=== PATIENT | male | born 1975 | race Caucasian/White ===

== ENCOUNTER 2023-03-21 10:03 | Outpatient (AMB) | payer OTHER, SELFPAY ==
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
[2023-03-21 10:06] VITALS: BP 104/86; PULSE 105; O2SAT 95; BMI 33.5
== END 2023-03-21 11:49 | disposition home or self-care (01) ==
PROVIDERS: Visit Provider Nurse Practitioner Family
DX: G43.109 Migraine with aura, not intractable, without status migrainosus (principal); G43.709 Chronic migraine without aura, not intractable, without status migrainosus; G47.9 Sleep disorder, unspecified
CPT/HCPCS: 99204

== ENCOUNTER → 2023-03-21 10:03 | Outpatient (BNVA) | payer OTHER, SELFPAY | PROVIDERS: Visit Provider Nurse Practitioner Family | DX: G43.709 Chronic migraine without aura, not intractable, without status migrainosus (principal); G47.9 Sleep disorder, unspecified | CPT/HCPCS: 99202 ==

== ENCOUNTER 2023-06-28 15:04 | Outpatient (AMB) | payer OTHER, SELFPAY ==
--- NOTE | 2023-06-28 15:09 | A.OFFVIS_ITS ---
Intake Vital Signs 06/28/23 15:10 Height 5 ft 11 in Weight 243 lb 4 oz BMI 33.9 Pulse 98 Pulse Source Pulse Oximeter Pulse Oximetry (%) 96 Oxygen Delivery Method Room Air Intake Visit Reasons: 3m follow up migraine-LVM Intake Note: Patient presents for 3 month follow up. Patient states Im not getting them in the morning like before.I have a migraine right now. I took the ubrelvy 45 mins ago. Allergies cat dander Allergy (Mild, Verified 06/28/23 15:14) Runny Nose amoxicillin Allergy (Unknown, Verified 06/28/23 15:14) Nausea and Vomiting clindamycin Allergy (Unknown, Verified 06/28/23 15:14) Diarrhea Medication List - Last Reconciled 06/28/23 by ABDELRAHMAN Taylor albuterol sulfate 2.5 mg inhalation Q6H albuterol sulfate 90 mcg/actuation (Ventolin HFA) 2 puffs inhalation Q6H PRN ammonium lactate 12% 1 appl topical DAILY atorvastatin 20 mg PO DAILY betamethasone valerate 0.1% 1 appl topical DAILY cetirizine 10 mg PO DAILY PRN clobetasol 0.05% 1 appl topical BEDTIME cyclobenzaprine 5 mg PO TID PRN fluticasone furoate-vilanterol 200-25 mcg/dose 1 inh inhalation DAILY galcanezumab-gnlm (Emgality Pen) 120 mg subcut ONCE 30 days hydrocortisone 2.5% 1 appl topical BID PRN ibuprofen 600 mg PO Q8H PRN mometasone 0.1% 1 appl topical DAILY montelukast 10 mg PO BEDTIME nicotine (Nicotrol) 1 inh inhalation Q2-4H PRN tacrolimus 0.03% (Protopic) 1 appl topical BID topiramate 25 - 50 mg (1 - 2 x 25 mg) PO BEDTIME 30 days triamcinolone acetonide 1 spray intranasal DAILY ubrogepant (Ubrelvy) 50 - 100 mg (0.5 - 1 x 100 mg) PO ONCE PRN 30 days umeclidinium 62.5 mcg/actuation (Incruse Ellipta) 1 inh inhalation BEDTIME HPI HPI Comments History of Present Illness Details 47-yr-old male presents for f/u visit, a ccompanied by his . Pt denies any significant interval medical changes. Pt reports that he has been having less headaches during the morning. He is having 3-3.5 times per week. He has to keep the lights down low and sounds down low. Tolerating Topiramate 25mg well. Ubrelvy has been helpful- can run out before the end of the month. He has not tried Emgality- he has a severe needle phobia. [facility] Medical History (Updated 07/05/23 @ 11:01 by ABDELRAHMAN Taylor) Umbilical hernia HTN (hypertension) HLD (hyperlipidemia) Anxiety Asthma-COPD overlap syndrome AMI on CPAP Family History Father Seizures Dementia Brain cancer Alzheimer disease CHF (congestive heart failure) Brother Diabetes Stomach cancer Maternal Grandmother Cancer Maternal Grandfather Cancer Paternal Grandmother Cancer Paternal Grandfather Cancer Social History Alcohol intake: never Patient Tobacco Use Status: Current everyday Tobacco user Review of Systems Const All systems reviewed & are unremarkable except as noted in HPI and below Physical Exam Vital Signs: Last Vital Signs Pulse 98 06/28/23 15:10 Pulse Ox 96 06/28/23 15:10 Oxygen Delivery Method Room Air 06/28/23 15:10 BMI result Body Mass Index 33.9 Const General: cooperative and no acute distress Orientation/consciousness: patient oriented x3 HEENT Head: Yes normocephalic Resp Effort & Inspection: normal respiratory effort and able to speak in complete sentences Neuro Other: Photophobic General: patient oriented x3, gait normal and CN's II-XI intact bilaterally Cognition (Neuro): normal cognition Motor exam (neuro): 5/5 motor strength present throughout Psych Appearance: grossly normal Mental Status: mental status grossly normal Speech and movement: Normal speech and movement present Affect: normal affect Attitude: cooperative Thought process: Normal thought process present Thought content: Normal thought content present Insight: Good insight present (Psych) Judgement: Good judgement present (Psych) Assessment & Plan Assessment & Plan (1) Chronic migraine without aura: Comment: likely posttraumatic etiology Code(s): G43.709 - Chronic migraine without aura, not intractable, without status migrainosus (2) Sleep difficulties: Code(s): G47.9 - Sleep disorder, unspecified (3) Photophobia: Code(s): H53.149 - Visual discomfort, unspecified (4) Migraine with aura: Code(s): G43.109 - Migraine with aura, not intractable, without status migrainosus Plan For tremor, ? olfactory/sense of something passing by, ? hypnogenic hallucinations/vivid dreams: ? psych process, ? early or posttraumatic movement d/o process, ? d/t h/o thorazine use, less likely ? of epileptic etiology. Will again request any head/neck imaging. Could consider DaTscan in f/u ? For posterior neck lump- Will review neck imaging. ? For overall headache management: Track headaches, especially after any treatment regimen changes. Migraine [employer] is one of many headache tracking apps. Light sensitivity tips: Patient may try blue light filtering glasses, green glasses, green light therapy.. Avoid wearing sunglasses inside. ? For acute headache treatment: Continue Ubrogepant (Ubrelvy) 100mg tab, 1/2 - 1 tab (50-100mg) at onset of hea dache, may repeat in 2 hours. Max of 2 tabs (200mg) per 24 hours. May adjunct with OTC Tylenol 650mg q 4 hours, Ibuprofen 600mg q 6 hours, or Naproxen 440mg q 12 hrs prn. Previous acute migraine medication trials: Advil. Ibuprofen. Acute migraine medication contraindications: Triptans d/t HTN, HLD, polycythemia ? For headache prevention medication: Increase Topiramate up to 75mg bid. Reviewed potential adverse effects of Topiramate, including but not limited to fatigue, cognitive changes. Previous migraine prevention medication trials: None Migraine prevention medication contraindications: BBs d/t asthma/COPD. CGRP MaBs, Vyepti- pt has significant needle phobia. ? Pt to follow-up in 3 months or sooner prn. Medications: New topiramate 50 - 75 mg (1 - 1.5 x 50 mg) PO BID 30 days 60 tabs 6RF Discontinued topiramate Discontinued Reason: Doctor's Order 25 - 50 mg (1 - 2 x 25 mg) PO BEDTIME 30 days 60 tabs 3RF galcanezumab-gnlm Discontinued Reason: Doctor's Order 120 mg subcut ONCE 30 days 1 mL 6RF Coding Level of Care Code Est Pt Level 4 (17769) Diagnoses Chronic migraine without aura G43.709 Sleep difficulties G47.9 Photophobia H53.149 Migraine with aura G43.109
[2023-06-28 15:10] VITALS: PULSE 98; O2SAT 96; BMI 33.9
== END 2023-06-28 15:47 | disposition home or self-care (01) ==
PROVIDERS: PCP Internal Medicine; Visit Provider Nurse Practitioner Family
DX: G43.709 Chronic migraine without aura, not intractable, without status migrainosus (principal); G47.9 Sleep disorder, unspecified; H53.149 Visual discomfort, unspecified; G43.109 Migraine with aura, not intractable, without status migrainosus
CPT/HCPCS: 99214

== ENCOUNTER → 2023-06-28 15:04 | Outpatient (BNVA) | payer OTHER, SELFPAY | PROVIDERS: PCP Internal Medicine; Visit Provider Nurse Practitioner Family | DX: G43.709 Chronic migraine without aura, not intractable, without status migrainosus (principal); G43.109 Migraine with aura, not intractable, without status migrainosus; G47.9 Sleep disorder, unspecified; H53.149 Visual discomfort, unspecified | CPT/HCPCS: 99212 ==

== ENCOUNTER → 2023-11-06 14:54 | Outpatient (BNVA) | payer OTHER, SELFPAY | PROVIDERS: PCP Internal Medicine; Visit Provider Nurse Practitioner Family ==

== ENCOUNTER 2024-02-29 08:01 | Outpatient (AMB) | payer OTHER, SELFPAY ==
[2024-02-29 08:02] VITALS: PULSE 110; O2SAT 96; BMI 33.6
--- NOTE | 2024-02-29 08:02 | MHC.OFFVIS ---
Vital Signs 02/29/24 08:02 Height 5 ft 11 in Weight 241 lb BMI 33.6 Pulse 110 H Pulse Source Pulse Oximeter Pulse Oximetry (%) 96 Oxygen Delivery Method Room Air Intake Visit Reasons: Follow Up-LVM Intake Note: Patient presents for follow up patient headaches are very often. Allergies cat dander Allergy (Mild, Verified 02/29/24 08:05) Runny Nose amoxicillin Allergy (Unknown, Verified 02/29/24 08:05) Nausea and Vomiting clindamycin Allergy (Unknown, Verified 02/29/24 08:05) Diarrhea Medication List - Last Reconciled 02/29/24 by ABDELRAHMAN Taylor albuterol sulfate 2.5 mg inhalation Q6H albuterol sulfate 90 mcg/actuation (Ventolin HFA) 2 puffs inhalation Q6H PRN ammonium lactate 12% 1 appl topical DAILY atogepant 30 mg PO DAILY 30 days atorvastatin 20 mg PO DAILY betamethasone valerate 0.1% 1 appl topical DAILY cetirizine 10 mg PO DAILY PRN clobetasol 0.05% 1 appl topical BEDTIME cyclobenzaprine 5 mg PO TID PRN fluticasone furoate-vilanterol 200-25 mcg/dose 1 inh inhalation DAILY hydrocortisone 2.5% 1 appl topical BID PRN ibuprofen 600 mg PO Q8H PRN mometasone 0.1% 1 appl topical DAILY montelukast 10 mg PO BEDTIME nicotine (Nicotrol) 1 inh inhalation Q2-4H PRN tacrolimus 0.03% (Protopic) 1 appl topical BID topiramate 50 mg PO BID 30 days triamcinolone acetonide 1 spray intranasal DAILY ubrogepant (Ubrelvy) 50 - 100 mg (0.5 - 1 x 100 mg) PO ONCE PRN 30 days umeclidinium 62.5 mcg/actuation (Incruse Ellipta) 1 inh inhalation BEDTIME HPI Comments Details: 48-yr-old male presents for f/u visit, accompanied by his . Pt denies any significant interval medical changes. Pt reports he continues to have headaches twice a day. He is very photophobic. Has tried blue light glasses and a non-specific green light but has not helped. Uses sunglasses. He needs to use Advil almost daily. Using Ubrelvy but only helps if he also takes w/ Advil. He is taking Topiramate 50mg qhs. Pt does endorse some constipation. Compliant w/?his CPAP- managed by pulmonology. Baseline headache characteristics: Predrome: none Aura: Can see central zig zags and blurry vision- right eye- this lasts 15-20 minutes, usually occurs during the headache attack but sometimes before. Severe sharp pain up the left side of the neck, moves into the darron of the eye, then into bilateral temples and then holocranial a/w photophobia, phonophobia, ? osmophobia (but he states he may things that are not present), nausea, not much vomiting, neck tightness, left hand tingling/numbness Postdrome: has almost constant headache PFSH Medical History (Updated 07/05/23 @ 11:01 by ABDELRAHMAN Taylor) Umbilical hernia HTN (hypertension) HLD (hyperlipidemia) Anxiety Asthma-COPD overlap syndrome AMI on CPAP Family History Father Seizures Dementia Brain cancer Alzheimer disease CHF (congestive heart failure) Brother Diabetes Stomach cancer Maternal Grandmother Cancer Maternal Grandfather Cancer Paternal Grandmother Cancer Paternal Grandfather Cancer Social History Alcohol intake: never Patient Tobacco Use Status: Current everyday Tobacco user Physical Exam Vital Signs: Last Vital Signs Pulse 110 H 02/29/24 08:02 Pulse Ox 96 02/29/24 08:02 Oxygen Delivery Method Room Air 02/29/24 08:02 BMI result Body Mass Index 33.6 Const General: cooperative and no acute distress Orientation/consciousness: patient oriented x3 Resp Effort & Inspection: normal respiratory effort and able to speak in complete sentences Neuro Other: Photophobia General: patient oriented x3 Cranial nerves: Yes CN's II-XII intact bilaterally Cognition (Neuro): normal cognition Psych Appearance: grossly normal Mental Status: mental status grossly normal Speech and movement: Normal speech and movement present Affect: normal affect Attitude: cooperative Assessment & Plan Assessment & Plan (1) Chronic migraine without aura: Comment: likely posttraumatic etiology Code(s): G43.709 - Chronic migraine without aura, not intractable, without status migrainosus Category: Medical (2) Migraine with aura: Code(s): G43.109 - Migraine with aura, not intractable, without status migrainosus Category: Medical (3) Photophobia: Code(s): H53.149 - Visual discomfort, unspecified Category: Medical Plan For overall headache management: Track headaches. Light sensitivity tips: Patient tried [employer] leo tinted blue light filtering galsses in office- had reduction in photophobia. Avoid wearing sunglasses inside. ? For acute headache treatment: Continue Ubrogepant (Ubrelvy) 100mg tab, 1/2 - 1 tab (50-100mg) at onset of headache, may repeat in 2 hours. Max of 2 tabs (200mg) per 24 hours. May adjunct with OTC Ibuprofen 600mg q 6 hours, or Naproxen 440mg q 12 hrs prn. Previous acute migraine medication trials: Advil. Ibuprofen. Acute migraine medication contraindications: Triptans d/t HTN, HLD, polycythemia ? For headache prevention medication: Increase Topiramate from 50mg qhs to 50mg bid for now. Would not increase furtehr as topiramate is a CY inducer which at higher doses may reduce effectiveness of gepants tx. Start Qulipta 30mg qhs. Monitor constipation. Previous migraine prevention medication trials: Topiramate has not been fully effective. Migraine prevention medication contraindications: BBs d/t asthma/COPD. CGRP MaBs or Vyepti- as pt has significant needle phobia. For tremor, ? olfactory/sense of something passing by, ? hypnogenic hallucinations/vivid dreams: ? psych process, ? early or posttraumatic movement d/o process, ? d/t h/o thorazine use, less likely ? of epileptic etiology. Will again request any head/neck imaging. Could consider DaTscan in f/u ?? ? Pt to follow-up in 6 months or sooner prn. Medications: New atogepant 30 mg PO DAILY 30 days 30 tabs 6RF G43.709 - Chronic migraine without aura, not intractable, without status migrainosus Changed From topiramate 50 - 75 mg (1 - 1.5 x 50 mg) PO BID 30 days 60 tabs 6RF To topiramate 50 mg PO BID 30 days 60 tabs 6RF Coding Level of Care Code Est Pt Level 4 (53120) Diagnoses Chronic migraine without aura G43.709 Migraine with aura G43.109 Photophobia H53.149
== END 2024-02-29 08:57 | disposition home or self-care (01) ==
PROVIDERS: PCP Internal Medicine; Visit Provider Nurse Practitioner Family
DX: G43.709 Chronic migraine without aura, not intractable, without status migrainosus (principal); G43.109 Migraine with aura, not intractable, without status migrainosus; H53.149 Visual discomfort, unspecified
CPT/HCPCS: 99214

== ENCOUNTER → 2024-02-29 08:01 | Outpatient (BNVA) | payer OTHER, SELFPAY | PROVIDERS: PCP Internal Medicine; Visit Provider Nurse Practitioner Family | DX: G43.109 Migraine with aura, not intractable, without status migrainosus (principal); H53.149 Visual discomfort, unspecified | CPT/HCPCS: 99212 ==

== ENCOUNTER 2024-09-26 08:35 | Outpatient (AMB) | payer OTHER, SELFPAY ==
--- NOTE | 2024-09-26 08:38 | A.OFFVIS_ITS ---
Vital Signs 09/26/24 08:46 Height 5 ft 11 in Weight 242 lb BMI 33.7 BP 112/80 Blood Pressure Location Rt brachial Position Sitting Pulse 97 Pulse Source Pulse Oximeter Pulse Oximetry (%) 97 Oxygen Delivery Method Room Air Intake Visit Reasons: 6 month f/u Intake Note: Patient presents for a 6 mo fu for migraines. Patient reports having a stroke on 08/16. 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 Accompanied by: Spouse Allergies cat dander Allergy (Mild, Verified 09/26/24 08:46) Runny Nose amoxicillin Allergy (Unknown, Verified 09/26/24 08:46) Nausea and Vomiting clindamycin Allergy (Unknown, Verified 09/26/24 08:46) Diarrhea Medication List - Last Reconciled 09/26/24 by ABDELRAHMAN Taylor albuterol sulfate 2.5 mg inhalation Q6H albuterol sulfate 90 mcg/actuation (Ventolin HFA) 2 puffs inhalation Q6H PRN ammonium lactate 12% 1 appl topical DAILY apixaban (Eliquis) 5 mg PO BID aspirin 81 mg PO DAILY atogepant 30 mg PO DAILY 30 days atorvastatin 20 mg PO DAILY betamethasone valerate 0.1% 1 appl topical DAILY cetirizine 10 mg PO DAILY PRN clobetasol 0.05% 1 appl topical BEDTIME cyclobenzaprine 5 mg PO TID PRN 30 days fenofibrate 40 mg PO DAILY fluticasone furoate-vilanterol 200-25 mcg/dose 1 inh inhalation DAILY hydrocortisone 2.5% 1 appl topical BID PRN ibuprofen 600 mg PO Q8H PRN magnesium oxide 400 mg PO BEDTIME 30 days mometasone 0.1% 1 appl topical DAILY montelukast 10 mg PO BEDTIME nicotine (Nicotrol) 1 inh inhalation Q2-4H PRN riboflavin (vitamin B2) 400 mg PO DAILY 30 days tacrolimus 0.03% (Protopic) 1 appl topical BID topiramate 50 mg PO BID 30 days triamcinolone acetonide 1 spray intranasal DAILY ubrogepant (Ubrelvy) 50 - 100 mg (0.5 - 1 x 100 mg) PO ONCE PRN 30 days umeclidinium 62.5 mcg/actuation (Incruse Ellipta) 1 inh inhalation BEDTIME HPI Comments Details: 49-yr-old male presents for f/u hospital discharge for CVA, accompanied by his . Patient reports that on 08/16 around 06:00, he felt a crack in his neck and deve loped left arm weakness..? Patient was brought to [facility] ER around 12:00. Per review of [facility] notes: CT head was negative for acute issue, CTA showed?Occlusion of left ICA.? No significant stenosis of right ICA.? Focal near occlusion of the intracranial proximal cavernous segment due to noncalcified plaque.? Severe narrowing of the distal intradural right vertebral artery.? Patient was treated with medical management, including permissive hypertension, heparin which was changed to Eliquis prior to discharge, atorvastatin was increased and fenofibrate was added.? Follow-up MRI showed scattered infarcts?in the right frontal and parietal lobes with 1 small punctate infarct in the left.? Patient also had loss of total vision of right eye for about a minute on 08/19.? MRI brain with contrast and MRA neck with contrast was done 08/19, with known infarction involving right superior frontal and parietal lobes and left superior frontal lobe and centrum semiovale.?Occlusion of left ICA again noted with intracranial reconstitution. Echo w/bubble on 08/19, no [id number] shunting.? Positive labs notable for: Positive lupus anticoagulant (inpatient Hematology felt likely positive due to heparin drip). Lipid studies: Cholesterol 183, HDL 28 low, non HDL cholesterol 155, triglycerides 322 high, LDL 89. Hgb A1c 6.8% high Otherwise normal TSH 1.97, anti cardiolipin IgA , Cardiolipin Ab Ig, Cardiolipin Ab [id number] IgM, and B2GP1 IgG. Upon discharge, patient was advised to follow a diabetic diet. Patient states he has been scheduled to have a diabetic education consult. Patient has been scheduled for a hematology consult at [facility] 4 F/U of positive lupus anticoagulant. Patient was discharged apixaban 2.5 mg b.i.d., fenofibrate 130 mg daily in a.m., aspirin 81 mg daily in a.m., atorvastatin 80 mg daily in a.m.. Unfortunately, patient states he can not tolerate fenofibrate. States he could not tolerate atorvastatin 80 mg daily, at most he thinks he could tolerate is 20-40 mg. He is also concerned that atorvastatin can cause diabetes. 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 However he is open to a weight management referral at [facility]. He does continue to smoke, and is not interested in smoking cessation at this time. He is trying to eat better, states when his lauren lizarragaogram meat, she is draining out any fat, and then rinsing any residual fat from the ground meat. Patient states that he does continue to have episodes of left upper extremity weakness and altered sensation. However, he denies any other residual effects. He continues to be photophobic. He has found a new pair of migraine specific light filtering glasses which are more helpful. At this time, he is using atogepant and topiramate for migraine prevention- which has been helpful. He is not using Ubrogepant at this time. Baseline headache characteristics: Predrome: none Aura: Can see central zig zags and blurry vision- right eye- this lasts 15-20 minutes, usually occurs during the headache attack but sometimes before. Severe sharp pain up the left side of the neck, moves into the darron of the eye, then into bilateral temples and then holocranial a/w photophobia, phonophobia, ? osmophobia (but he states he may things that are not present), nausea, not much vomiting, neck tightness, left hand tingling/numbness Postdrome: has almost constant headache [facility] Medical History (Updated 09/26/24 @ 18:24 by ABDELRAHMAN Taylor) Umbilical hernia HTN (hypertension) HLD (hyperlipidemia) Anxiety Asthma-COPD overlap syndrome AMI on CPAP Family History Father Seizures Dementia Brain cancer Alzheimer disease CHF (congestive heart failure) Brother Diabetes Stomach cancer Maternal Grandmother Cancer Maternal Grandfather Cancer Paternal Grandmother Cancer Paternal Grandfather Cancer Social History Alcohol intake: never Patient Tobacco Use Status: Current everyday Tobacco user Physical Exam Vital Signs: Last Vital Signs Pulse 97 09/26/24 08:46 BP 112/80 09/26/24 08:46 Pulse Ox 97 09/26/24 08:46 Oxygen Delivery Method Room Air 09/26/24 08:46 BMI result Body Mass Index 33.7 Const General: cooperative and no acute distress Orientation/consciousness: patient oriented x3 Resp Effort & Inspection: normal respiratory effort and able to speak in complete sentences Neuro Other: Photophobia Symmetric bilateral hand grasp- muscle strength 5/5 General: patient oriented x3 Cranial nerves: Yes CN's II-XII intact bilaterally Cognition (Neuro): normal cognition Gait exam (Neuro): Normal gait present Motor exam (neuro): 5/5 motor strength present throughout Deep tendon reflexes (DTR's): Right triceps reflex intensity grade: 2+, Left triceps reflex intensity grade: 3+, Rt Biceps (C5, C6): 2+, Left biceps reflex intensity grade: 2+, Right brachioradialis reflex intensity grade: 2+, Left brachioradialis reflex intensity grade: 2+, Right patellar reflex intensity grade: 2+ and Left patellar reflex intensity grade: 2+ Psych Appearance: grossly normal Mental Status: mental status grossly normal Speech and movement: Normal speech and movement present Affect: normal affect Attitude: cooperative Assessment & Plan Assessment & Plan (1) Acute right arterial ischemic stroke, middle cerebral artery (MCA): Code(s): I63.511 - Cerebral infarction due to unspecified occlusion or stenosis of right middle cerebral artery Category: Medical (2) Multiple cerebral infarctions: Comment: Multiple subacute Right hemispheric infarcts (fright fontal and parietal lobe) as well as punctate subacute left centrum semiovale infarct Code(s): I63.9 - Cerebral infarction, unspecified Category: Medical (3) Left carotid artery occlusion: Code(s): I65.22 - Occlusion and stenosis of left carotid artery Category: Medical (4) Intracranial carotid stenosis, right: Code(s): I65.21 - Occlusion and stenosis of right carotid artery Category: Medical (5) Chronic migraine without aura: Comment: likely posttraumatic etiology Code(s): G43.709 - Chronic migraine without aura, not intractable, without status migrainosus Category: Medical (6) Migraine with aura: Code(s): G43.109 - Migraine with aura, not intractable, without status migrainosus Category: Medical (7) Photophobia: Code(s): H53.149 - Visual discomfort, unspecified Category: Medical (8) Diabetes mellitus: Code(s): E11.9 - Type 2 diabetes mellitus without complications Category: Medical (9) Tobacco use: Code(s): Z72.0 - Tobacco use Category: Social Hx (10) Morbid obesity with alveolar hypoventilation: Code(s): E66.2 - Morbid (severe) obesity with alveolar hypoventilation Category: Medical (11) Obstructive sleep apnea: Code(s): G47.33 - Obstructive sleep apnea (adult) (pediatric) Category: Medical Plan For recent diagnosis of multiple acute/subacute right hemispheric infarcts in the frontal and parietal lobes as well as a punctuate subacute left centrum semiovale infarct: Continue aspirin 81 mg- advised to take daily at bedtime Continue Eliquis 2.5 mg b.i.d. Continue to maintain good BP control- BP currently normotensive. Patient may continue atogepant for migraine prevention, however advised to hold Ubrogepant at this time- as patient is just 4 weeks post acute/subacute cerebral infarcts, and thus would avoid dual anti-CGRP antagonist tx for at least 6 months post infarct. Encouraged patient to take atorvastatin at least 40 mg at bedtime. If patient truly can not tolerate fenofibrate, should likely have follow-up with either Cardiology or endocrinology. Review of his recent lipid panel shows, dyslipidemia is mostly related to low HDL and elevated triglycerides. Thus in the meantime, patient advised to increase healthy fats such as olive oil, salmon, avocado. Patient does not eat nuts of any kind. And patient advised to reduce simple carbohydrate intake, and out for more complex carbohy drates and smaller portions. Encouraged patient to increase overall fruit and vegetable intake. Diabetic education consult as scheduled. Hematology consult as scheduled. Patient declines any interventions for smoking cessation at this time. Patient has not tolerated Pap therapy. We will take the liberty of referring patient for medical weight management consult at [facility]- location per patient request. Schedule three-month follow-up brain MRI w/o and brain/neck MRA. For overall headache management: Track headaches. Continue using migraine specific blue light blocking glasses. Avoid wearing sunglasses inside. ? For acute headache treatment: Hold Ubrogepant (Ubrelvy) 100mg tab. May use Tylenol 650-1000 mg q.4-6 hours p.r.n. Previous acute migraine medication trials: Advil. Ibuprofen. Acute migraine medication contraindications: Triptans d/t HTN, HLD, polycythemia ? For headache prevention medication: Resume riboflavin 400 mg q.a.m. Continue magnesium 400 mg q.h.s. Continue Topiramate 50mg bid for now. Continue Qulipta 30mg qhs. Monitor constipation. Previous migraine prevention medication trials: Topiramate has not been fully effective. Migraine prevention medication contraindications: BBs d/t asthma/COPD. CGRP MaBs or Vyepti- as pt has significant needle phobia. For tremor, ? olfactory/sense of something passing by, ? hypnogenic hallucinations/vivid dreams: ? psych process, ? early or posttraumatic movement d/o process, ? d/t h/o thorazine use, less likely ? of epileptic etiology. Monitor clinically for now. Could consider DaTscan in f/u ?? ? Pt to follow-up in 3-6 months or sooner prn. Orders: Orders MR head/brain wo con 3 Months I63.511 - Cerebral infarction due to unspecified occlusion or stenosis of right middle cerebral artery, I63.9 - Cerebral infarction, unspecified, I65.21 - Occlusion and stenosis of right carotid artery, I65.22 - Occlusion and stenosis of left carotid artery MR angio head wo con 3 Months I63.511 - Cerebral infarction due to unspecified occlusion or stenosis of right middle cerebral artery, I63.9 - Cerebral infarction, unspecified, I65.21 - Occlusion and stenosis of right carotid artery, I65.22 - Occlusion and stenosis of left carotid artery MR angio neck wo/w con 3 Months I63.511 - Cerebral infarction due to unspecified occlusion or stenosis of right middle cerebral artery, I63.9 - Cerebral infarction, unspecified, I65.21 - Occlusion and stenosis of right carotid artery, I65.22 - Occlusion and stenosis of left carotid artery Referrals Medical Weight Management Referral E11.9 - Type 2 diabetes mellitus without complications, E66.2 - Morbid (severe) obesity with alveolar hypoventilation, G47.33 - Obstructive sleep apnea (adult) (pediatric), I63.9 - Cerebral infarction, unspecified Medications: Changed From aspirin 81 mg PO DAILY To aspirin 81 mg PO BEDTIME 30 days 30 tabs 6RF Refilled topiramate 50 mg PO BID 30 days 60 tabs 6RF atogepant 30 mg PO DAILY 30 days 30 tabs 6RF riboflavin (vitamin B2) 400 mg PO DAILY 30 days 30 tabs 6RF magnesium oxide may hold for loose stools 400 mg PO BEDTIME 30 days 30 tabs 6RF On Hold ubrogepant (Ubrelvy) Hold Comment: Doctor's Order 50 - 100 mg (0.5 - 1 x 100 mg) PO ONCE 30 days PRN 16 tabs 6RF migraine headache Coding Level of Care Code Est Pt Level 4 (64268) Complex EM visit Add On G2211 Diagnoses Acute right arterial ischemic stroke, middle cerebral artery (MCA) I63.511 Multiple cerebral infarctions I63.9 Left carotid artery occlusion I65.22 Intracranial carotid stenosis, right I65.21 Chronic migraine without aura G43.709 Migraine with aura G43.109 Photophobia H53.149 Diabetes mellitus E11.9 Tobacco use Z72.0 Morbid obesity with alveolar hypoventilation E66.2 Obstructive sleep apnea G47.33
[2024-09-26 08:46] VITALS: BP 112/80; PULSE 97; O2SAT 97; BMI 33.7
== END 2024-09-26 10:00 | disposition home or self-care (01) ==
PROVIDERS: PCP Internal Medicine; Visit Provider Nurse Practitioner Family
DX: I69.398 Other sequelae of cerebral infarction (principal); I65.22 Occlusion and stenosis of left carotid artery; I65.21 Occlusion and stenosis of right carotid artery; G43.709 Chronic migraine without aura, not intractable, without status migrainosus; G43.109 Migraine with aura, not intractable, without status migrainosus; H53.149 Visual discomfort, unspecified; E11.9 Type 2 diabetes mellitus without complications; Z72.0 Tobacco use; E66.2 Morbid (severe) obesity with alveolar hypoventilation; G47.33 Obstructive sleep apnea (adult) (pediatric)
CPT/HCPCS: 99214; G2211

== ENCOUNTER → 2024-09-26 08:35 | Outpatient (BNVA) | payer OTHER, SELFPAY | PROVIDERS: PCP Internal Medicine; Visit Provider Nurse Practitioner Family | DX: I63.511 Cerebral infarction due to unspecified occlusion or stenosis of right middle cerebral artery (principal); G43.709 Chronic migraine without aura, not intractable, without status migrainosus; G43.109 Migraine with aura, not intractable, without status migrainosus; I65.22 Occlusion and stenosis of left carotid artery; I65.21 Occlusion and stenosis of right carotid artery; G47.33 Obstructive sleep apnea (adult) (pediatric); H53.149 Visual discomfort, unspecified; E11.9 Type 2 diabetes mellitus without complications; Z72.0 Tobacco use; E66.2 Morbid (severe) obesity with alveolar hypoventilation; Z68.33 Body mass index [BMI] 33.0-33.9, adult | CPT/HCPCS: 99212 ==

== ENCOUNTER 2025-04-08 11:27 | Outpatient (AMB) | payer OTHER, SELFPAY ==
[2025-04-08 11:35] VITALS: BP 126/92; PULSE 112; O2SAT 97; BMI 31.6
--- NOTE | 2025-04-08 11:35 | A.OFFVIS_ITS ---
Vital Signs 04/08/25 11:35 Height 5 ft 11 in Weight 226 lb 4 oz BMI 31.6 BP 126/92 H Blood Pressure Location Rt brachial Position Sitting Pulse 112 H Pulse Source Pulse Oximeter Pulse Oximetry (%) 97 Oxygen Delivery Method Room Air Intake Visit Reasons: Follow up Intake Note: Patient presents follow up for migraines. MRI not done(patient left without getting done). Paper Steamer Required: No Accompanied by: Spouse Allergies cat dander Allergy (Mild, Verified 04/08/25 11:37) Runny Nose amoxicillin Allergy (Unknown, Verified 04/08/25 11:37) Nausea and Vomiting clindamycin Allergy (Unknown, Verified 04/08/25 11:37) Diarrhea Medication List - Last Reconciled 04/08/25 by ABDELRAHMAN Taylor acetaminophen (Tylenol Extra Strength) 500 - 1,000 mg (1 - 2 x 500 mg) PO Q4-6H PRN 30 days MDD 6 tabs albuterol sulfate 2.5 mg inhalation Q6H albuterol sulfate 90 mcg/actuation (Ventolin HFA) 2 puffs inhalation Q6H PRN ammonium lactate 12% 1 appl topical DAILY apixaban (Eliquis) 2.5 mg PO BID 30 days aspirin 81 mg PO BEDTIME 30 days atogepant 30 mg PO DAILY 30 days atorvastatin 20 mg PO DAILY betamethasone valerate 0.1% 1 appl topical DAILY cetirizine 10 mg PO DAILY PRN clobetasol 0.05% 1 appl topical BEDTIME cyclobenzaprine 5 mg PO TID PRN 30 days fenofibrate 40 mg PO DAILY fluticasone furoate-vilanterol 200-25 mcg/dose 1 inh inhalation DAILY gabapentin 300 mg PO BID 30 days hydrocortisone 2.5% 1 appl topical BID PRN ibuprofen 600 mg PO Q8H PRN magnesium oxide 400 mg PO BEDTIME 30 days mometasone 0.1% 1 appl topical DAILY montelukast 10 mg PO BEDTIME nicotine (Nicotrol) 1 inh inhalation Q2-4H PRN riboflavin (vitamin B2) 400 mg PO DAILY 30 days tacrolimus 0.03% (Protopic) 1 appl topical BID topiramate 50 mg PO BID 30 days triamcinolone acetonide 1 spray intranasal DAILY ubrogepant (Ubrelvy) 50 - 100 mg (0.5 - 1 x 100 mg) PO ONCE PRN 30 days Held on 09/26/24. Instructions: Doctor's Order umeclidinium 62.5 mcg/actuation (Incruse Ellipta) 1 inh inhalation BEDTIME HPI Comments Details: 49-yr-old male presents for f/u migraine and s/p CVA on 08/16/2024. Patient is accompanied by his . Unfortunately, patient has not yet had follow-up brain/head/neck MRI/MRA-patient states he did not complete the imaging at the initial appointment, as he had become frustrated when another person, who he thought was late for their appointment, was called in before him. The appointment was rescheduled, however he had to cancel it due to initially that came up, and unfortunately when he attempted to reschedule it, the insurance authorization had already . Interval stroke follow-up: * Patient did have follow-up [facility] stroke neurology follow-up in January with Dr Dorsey- plan was to continue to optimize cardiovascular risk factors with dual anti-platelet therapy, Eliquis and low-dose aspirin, and BP goal of < 130/90, hemoglobin A1c goal < 8%, and LDL goal < 70. For HLD: mod dose statin due to risk for myalgia w/ atorvastatin 40mg dose, he cannot tolerate Fibrate d/t diarrhea, and recommendation for PCP to consider Vascepa for HyperTGemia. * Per stroke Neurology note, Lupus antibody was reviewed by hematology oncology and felt the result was not positive and is not considered due to lupus anticoagulant with additional beta-2 glycoprotein and anticardiolipin also negative. * Patient also underwent an interval sleep study, however he is not tolerating CPAP therapy well. Per [facility] pulmonology notes in November, pulmonary tx's were adjusted, and patient was to undergo follow-up in-lab PAP titration study. 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 Thus he is trying to increase his blood sugars before bed to offset this, through carbohydrate rich intake. He notes that he has a picky eater, and if he were to take protein he really have to think about what types of protein he could tolerate. * Patient has completed PT Headache review: Today, patient reports he is waking up w/ increased posterior neck stiffness and tightness, which is triggering his migraine attacks, almost every day. He has adjusted his pillows and mattress but this has not helped. He is compliant w/ qulipta. Is using Tylenol 500mg prn, and generic ibuprofen 200mg qam. Again patient is still on chronic Eliquis and ASA 81mg qhs. He wonders about increasing his cyclobenzaprine. He has not been taking the topiramate- thought he was supposed to stop this. He has held the [email or web address]. 09/26/24, HPI: Patient reports that on 08/16 around 06:00, he felt a crack in his neck and developed left arm weakness..? Patient was brought to [facility] ER around 12:00. Per review of [facility] notes: CT head was negative for acute issue, CTA showed?Occlusion of left ICA.? No significant stenosis of right ICA.? Focal near occlusion of the intracranial proximal cavernous segment due to no ncalcified plaque.? Severe narrowing of the distal intradural right vertebral artery.? Patient was treated with medical management, including permissive hypertension, heparin which was changed to Eliquis prior to discharge, atorvastatin was increased and fenofibrate was added.? Follow-up MRI showed scattered infarcts?in the right frontal and parietal lobes with 1 small punctate infarct in the left.? Patient also had loss of total vision of right eye for about a minute on 08/19.? MRI brain with contrast and MRA neck with contrast was done 08/19, with known infarction involving right superior frontal and parietal lobes and left superior frontal lobe and centrum semiovale.?Occlusion of left ICA again noted with intracranial reconstitution. Echo w/bubble on 08/19, no [id number] shunting.? Positive labs notable for: Positive lupus anticoagulant (inpatient Hematology felt likely positive due to heparin drip). Lipid studies: Cholesterol 183, HDL 28 low, non HDL cholesterol 155, trigly cerides 322 high, LDL 89. Hgb A1c 6.8% high Otherwise normal TSH 1.97, anti cardiolipin IgA , Cardiolipin Ab Ig, Cardiolipin Ab [id number] IgM, and B2GP1 IgG. Upon discharge, patient was advised to follow a diabetic diet. Patient states he has been scheduled to have a diabetic education consult. Patient has been scheduled for a hematology consult at [facility] 4 F/U of positive lupus anticoagulant. Patient was discharged apixaban 2.5 mg b.i.d., fenofibrate 130 mg daily in a.m., aspirin 81 mg daily in a.m., atorvastatin 80 mg daily in a.m.. Unfortunately, patient states he can not tolerate fenofibrate. States he could not tolerate atorvastatin 80 mg daily, at most he thinks he could tolerate is 20-40 mg. He is also concerned that atorvastatin can cause diabetes. 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 However he is open to a weight management referral at [facility]. He does continue to smoke, and is not interested in smoking cessation at this time. He is trying to eat better, states when his lauren lizarragaogram meat, she is draining out any fat, and then rinsing any residual fat from the ground meat. Patient states that he does continue to have episodes of left upper extremity weakness and altered sensation. However, he denies any other residual effects. He continues to be photophobic. He has found a new pair of migraine specific light filtering glasses which are more helpful. At this time, he is using atogepant and topiramate for migraine prevention- which has been helpful. He is not using Ubrogepant at this time. Baseline headache characteristics: Predrome: none Aura: Can see central zig zags and blurry vision- right eye- this lasts 15-20 minutes, usually occurs during the headache attack but sometimes before. Severe sharp pain up the left side of the neck, moves into the darron of the eye, then into bilateral temples and then holocranial a/w photophobia, phonophobia, ? osmophobia (but he states he may things that are not present), nausea, not much vomiting, neck tightness, left hand tingling/numbness Postdrome: has almost constant headache PFSH Medical History Umbilical hernia HTN (hypertension) HLD (hyperlipidemia) Anxiety Asthma-COPD overlap syndrome AMI on CPAP Family History Father Seizures Dementia Brain cancer Alzheimer disease CHF (congestive heart failure) Brother Diabetes Stomach cancer Maternal Grandmother Cancer Maternal Grandfather Cancer Paternal Grandmother Cancer Paternal Grandfather Cancer Social History Alcohol intake: never Patient Tobacco Use Status: Current everyday Tobacco user Physical Exam Vital Signs: Last Vital Signs Pulse 112 H 04/08/25 11:35 BP 126/92 H 04/08/25 11:35 Pulse Ox 97 04/08/25 11:35 Oxygen Delivery Method Room Air 04/08/25 11:35 BMI result Body Mass Index 31.6 Const General: cooperative and no acute distress Orientation/consciousness: patient oriented x3 Resp Effort & Inspection: normal respiratory effort and able to speak in complete sentences Neuro Other: Photophobia Clear speech Muscle strength 5/5 Stands slowly but easily, General: patient oriented x3 Cranial nerves: Yes CN's II-XII intact bilaterally Cognition (Neuro): normal cognition Motor exam (neuro): 5/5 motor strength present throughout Psych Appearance: grossly normal Mental Status: mental status grossly normal Speech and movement: Normal speech and movement present Affect: normal affect Attitude: cooperative Assessment & Plan Assessment & Plan (1) Chronic migraine without aura: Comment: likely posttraumatic etiology Code(s): G43.709 - Chronic migraine without aura, not intractable, without status migrainosus Category: Medical Qualifiers: Status migrainosus presence: without status migrainosus Intractability: not intractable Qualified Code(s): G43.709 - Chronic migraine without aura, not intractable, without status migrainosus (2) Migraine with aura: Code(s): G43.109 - Migraine with aura, not intractable, without status migrainosus Category: Medical Qualifiers: Status migrainosus presence: without status migrainosus Intractability: not intractable Qualified Code(s): G43.109 - Migraine with aura, not intractable, without status migrainosus (3) Photophobia: Code(s): H53.149 - Visual discomfort, unspecified Category: Medical (4) Acute right arterial ischemic stroke, middle cerebral artery (MCA): Code(s): I63.511 - Cerebral infarction due to unspecified occlusion or stenosis of right middle cerebral artery Category: Medical (5) Multiple cerebral infarctions: Comment: Multiple subacute Right hemispheric infarcts (fright fontal and parietal lobe) as well as punctate subacute left centrum semiovale infarct Code(s): I63.9 - Cerebral infarction, unspecified Category: Medical (6) Left carotid artery occlusion: Code(s): I65.22 - Occlusion and stenosis of left carotid artery Category: Medical (7) Intracranial carotid stenosis, right: Code(s): I65.21 - Occlusion and stenosis of right carotid artery Category: Medical (8) Obstructive sleep apnea: Code(s): G47.33 - Obstructive sleep apnea (adult) (pediatric) Category: Medical Plan For recent diagnosis of multiple acute/subacute right hemispheric infarcts in the frontal and parietal lobes as well as a punctuate subacute left centrum semiovale infarct: Continue aspirin 81 mg- advised to take daily at bedtime Continue Eliquis 2.5 mg b.i.d. Continue to maintain good BP control, goal under 130/90- BP currently normotensive. Atorvastatin at goal of 40 mg at bedtime. LDL goal less than 70. Follow-up lipid panel as scheduled. Follow-up with endocrinology as scheduled: * Patient advised to notify them of his low nocturnal blood sugars * In the meantime, patient advised to add a protein rich snack before bedtime Patient declines any interventions for smoking cessation at this time. Patient has not tolerated Pap therapy- Follow-up with vascular surgery, [facility], pulmonology Previously referred for medical weight management consult at [facility]- location per patient request. Patient is again advised to undergo follow-up brain MRI w/o and brain/neck MRA to assess status of intracranial infarcts, intracranial white matter changes, intra/extracranial stenosis. For overall headache management: Track headaches. Continue using migraine specific blue light blocking glasses. Avoid wearing sunglasses inside. ? For acute headache treatment: Now that patient is greater than 6 months since CVA, he may resume Ubrogepant (Ubrelvy) 100mg tab: * Take Ubrogepant 1/2 - 1 tab (50-100mg) at onset of headache. * You may repeat the dose in 2 hours. Max of 2 tabs (200mg) per 24 hours. * You may take Ubrogepant with OTC Tylenol 650 -1000 mg q 4 -6 hours. as needed. * This medication likely will require an insurance prior authorization before you will be able to receive this from your pharmacy. ? * We will initiate the prior authorization process per your specific health insurance's requirements. ? * However, please note, that your health insurance belongs to you, and you may also need to communicate with your insurance company in order for the prior authorization request to be processed. ?it is possible that you will also need to speak to your insurance regarding requesting the prior authorization May use Tylenol 650-1000 mg q.4-6 hours p.r.n. Patient advised to abstain from using ibuprofen, Advil, or any NSAIDs due to current do platelet antagonist therapy. Previous acute migraine medication trials: Advil. Ibuprofen. Acute migraine medication contraindications: Triptans d/t HTN, HLD, polycythemia ? For headache prevention medication: Continue riboflavin 400 mg q.a.m. Continue magnesium 400 mg q.h.s. Resume Topiramate 50mg bid for now. Continue Qulipta 30mg qhs. Monitor constipation. Previous migraine prevention medication trials: Topiramate has not been fully effective. Migraine prevention medication contraindications: BBs d/t asthma/COPD. CGRP MaBs or Vyepti- as pt has significant needle phobia. For tremor, ? olfactory/sense of something passing by, ? hypnogenic hallucinations/vivid dreams: ? psych process, ? early or posttraumatic movement d/o process, ? d/t h/o thorazine use, less likely ? of epileptic etiology. Monitor clinically for now. Could consider DaTscan in f/u ?? ? Pt to follow-up in 3-6 months or sooner prn. Orders: Orders MR angio neck wo/w con Today I63.511 - Cerebral infarction due to unspecified occlusion or stenosis of right middle cerebral artery, I63.9 - Cerebral infarction, unspecified, I65.21 - Occlusion and stenosis of right carotid artery, I65.22 - Occlusion and stenosis of left carotid artery MR head/brain wo con Today I63.511 - Cerebral infarction due to unspecified occlusion or stenosis of right middle cerebral artery, I63.9 - Cerebral infarction, unspecified, I65.21 - Occlusion and stenosis of right carotid artery, I65.22 - Occlusion and stenosis of left carotid artery MR angio head wo con Today I63.511 - Cerebral infarction due to unspecified occlusion or stenosis of right middle cerebral artery, I63.9 - Cerebral infarction, unspecified, I65.21 - Occlusion and stenosis of right carotid art juan antonio, I65.22 - Occlusion and stenosis of left carotid artery Coding Level of Care Code Est Pt Level 4 (58062) Complex EM visit Add On G2211 Diagnoses Chronic migraine without aura without status migrainosus, not intractable G43.709 Status migrainosus presence: without status migrainosus Intractability: not intractable Migraine with aura and without status migrainosus, not intractable G43.109 Status migrainosus presence: without status migrainosus Intractability: not intractable Photophobia H53.149 Acute right arterial ischemic stroke, middle cerebral artery (MCA) I63.511 Multiple cerebral infarctions I63.9 Left carotid artery occlusion I65.22 Intracranial carotid stenosis, right I65.21 Obstructive sleep apnea G47.33
--- OUTSIDE RECORDS SUMMARY | 2025-04-08 12:16 | XMS_ITS ---
Author Name [facility] Organization Unknown Care Team Organization Name Specialty Phone Email Start Date End Da te [facility] Belkys Bui DO Primary Care 11/08/202204/03 [facility] MICHELLE SOLANO Primary Care 07/11/2022 04/21/20 24
--- OUTSIDE RECORDS SUMMARY | 2025-04-08 12:16 | XMS_ITS | Clinical Summary ---
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 LAB CHEMISTRY METHOD 04/01/2025 2:[address] [facility] Chloride 103 96 - 110 mmol/L LAB CHEMISTRY METHOD 04/01/2025 2:[address] [facility] CO2 28 21 - 32 mmol/L LAB CHEMISTRY METHOD 04/01/2025 2:[address] [facility] Anion Gap 7 3 - 11 LAB CHEMISTRY METHOD 04/01/2025 2:[address] [facility] Glucose 101(H) 70 - 100 mg/dL LAB CHEMISTRY METHOD 04/01/2025 2:[address] [facility] BUN 15 5 - 25 mg/dL LAB CHEMISTRY METHOD 04/01/2025 2:[address] [facility] Creatinine 1.11 0.70 - 1.30 mg/dL LAB CHEMISTRY METHOD 04/01/2025 2:[address] [facility] eGFR 81 >=60 mL/min/1. 73m2 LAB CHEMISTRY METHOD 04/01/2025 2:[address] [facility] Comment:Calculation based on the Chronic Kidney Disease Epidemiology Collaboration (CKD-EPI) equation refit without adjustment for race. BUN/Creatinine Ratio 13.5 LAB CHEMISTRY METHOD 04/01/2025 2:[address] [facility] Calcium 9.6 8.5 - 10.5 mg/dL LAB CHEMISTRY METHOD 04/01/2025 2:[address] [facility] Blood Venous blood specimen / Unknown Venipuncture / Unknown 04/01/2025 10:09 AM EDT 04/01/2025 10:09 AM EDT us López Adorno MD LAB BLOOD ORDERABLES Final Resul t Performing Organization Address City/[facility]/ZIP Co de Phone Number [facility] [address] [place] [address], [place] [phone] * SST tube (01/14/2025 11:33 AM EDT) Extra Tube Hold for add-ons. 01/14/2025 5:[address] [facility] Comment:Auto resulted. Blood Venous blood specimen / Unknown Venipuncture / Unknown 01/14/2025 11:33 AM EDT 01/14/2025 11:33 AM EDT us López Adorno MD LAB BLOOD ORDERABLES Final Resul t [facility] [address] [place] [address], [place] [phone] * Lavender tube (01/14/2025 11:33 AM EDT) Extra Tube Hold for add-ons. 01/14/2025 5:[address] [facility] Comment:Auto resulted. Blood Venous blood specimen / Unknown Venipuncture / Unknown 01/14/2025 11:33 AM EDT 01/14/2025 11:33 AM EDT López Adorno MD LAB BLOOD ORDERABLES Final Resul t [facility] [address] [place] [address], [place] [phone] * Glutamic acid decarboxylase antibody (01/14/2025 11:27 AM EDT) [facility] Glutamic Acid Decarboxylase Ab <5 <5 IU/mL 01/20/2025 1:28 PM EDT [facility] Comment: Test performed at [facility], [address] Document Preparation , [place] [address] Ekaterina Thompson MD, PhD - Scroll Shear Operator Blood Venous blood specimen / Unknown Venipuncture / Unknown 01/14/2025 11:27 AM EDT 01/14/2025 11:27 AM EDT López Adorno MD LAB BLOOD ORDERABLES Final Resul t Performing Organization Address City/[facility]/ZIP Co de Phone Number [facility] [address] [place] [address] * Interferon gamma interpretation (01/14/2025 10:25 AM EDT) [facility] Quantiferon Plus Interpretation Negative Negative LAB CHEMISTRY METHOD 01/15/2025 10:[address] [facility] Blood Venous blood specimen / Unknown Venipuncture / Unknown 01/14/2025 10:25 AM EDT 01/14/2025 10:25 AM EDT Nicole Cisneros MD LAB BLOOD ORDERABLES Final Result [facility] [address] [place] [address], [place] [phone] * Interferon gamma antigen 2 (01/14/2025 10:25 AM EDT) Blood Venous blood specimen / Unknown Venipuncture / Unknown 01/14/2025 10:25 AM EDT 01/14/2025 10:25 AM EDT us Nicole Cisneros MD LAB BLOOD ORDERABLES Final Result [facility] [address] [place] [address], [place] [phone] * Inteferon gamma antigen 1 (01/14/2025 10:25 AM EDT) Blood Venous blood specimen / Unknown Venipuncture / Unknown 01/14/2025 10:25 AM EDT 01/14/2025 10:25 AM EDT us Nicole Cisneros MD LAB BLOOD ORDERABLES Final Result Performing Organization Address [facility]/ZIP Co de Phone Number [facility] [address] [place] [address], [place] [phone] * Interferon gamma mitogen (01/14/2025 10:25 AM EDT) Blood Venous blood specimen / Unknown Venipuncture / Unknown 01/14/2025 10:25 AM EDT 01/14/2025 10:25 AM EDT us Nicole Cisneros MD LAB BLOOD ORDERABLES Final Result Performing Organization Address City/[facility]/ZIP Co de Phone Number [facility] [address] [place] [address], [place] [phone] * Interferon gamma NIL (01/14/2025 10:25 AM EDT) Blood Venous blood specimen / Unknown Venipuncture / Unknown 01/14/2025 10:25 AM EDT 01/14/2025 10:25 AM EDT us Nicole Cisneros MD LAB BLOOD ORDERABLES Final Result Performing Organization Address City/[facility]/ZIP Co de Phone Number [facility] [address] [place] [address], [place] [phone] * (ABNORMAL) Lipid panel with reflex to direct LDL (01/14/2025 10:25 AM EDT) Cholesterol 214(H) 0 - 200 mg/dL LAB CHEMISTRY METHOD 01/14/2025 4:[address] [facility] Triglycerides 403(H) 0 - 150 mg/dL LAB CHE[facility]STRY [facility] HDL 32(L) >=40 mg/dL LAB CHEMISTRY METHOD 01/14/2025 4:[address] [facility] LDL Calculated 101(H) 0 - 100 mg/dL LAB CHEMISTRY METHOD 01/14/2025 4:[address] [facility] Comment:Unable to calculate when triglycerides >400 mg/dL. VLDL Cholesterol Ji 80.6 mg/dL LAB CHEMISTRY METHOD 01/14/2025 4:[address] [facility] Comment:Unable to calculate when triglycerides >400 mg/dL. Non HDL Chol. (LDL+VLDL) 182(H) <145 mg/dL LAB CHEMISTRY METHOD 01/14/2025 4:[address] [facility] Comment:Unable to calculate when triglycerides >400 mg/dL. Chol/HDL Ratio 6.7(H) 0.0 - 4.4 LAB CHEMISTRY METHOD 01/14/2025 4:[address] [facility] Blood Venous blood specimen / Unknown Venipuncture / Unknown 01/14/2025 10:25 AM EDT 01/14/2025 10:25 AM EDT us Nicole Cisneros MD LAB BLOOD ORDERABLES Final Result [facility] [address] [place] [address], [place] [phone] * YOAL IFA with titer and pattern (01/14/2025 10:25 AM EDT) YOLA Negative Negative 01/15/2025 12:[address] [facility] Blood Venous blood specimen / Unknown Venipuncture / Unknown 01/14/2025 10:25 AM EDT 01/14/2025 10:25 AM EDT us Nicole Cisneros MD LAB BLOOD ORDERABLES Final Result [facility] [address] [place] [address], * (ABNORMAL) CBC auto differential (01/14/2025 10:25 AM EDT) WBC 11.0(H) 4.8 - 10.8 K/mcL LAB HEMETOLOGY METHOD 01/14/2025 2:[address] [facility] RBC 6.00(H) 4.50 - 5.50 M/mcL LAB HEMETOLOGY METHOD 01/14/2025 2:[address] [facility] Hemoglobin 18.5(H) 13.5 - 17.5 g/dL LAB HEMETOLOGY METHOD 01/14/2025 2:[address] [facility] Hematocrit 53.7 42.0 - 54.0 % LAB HEMETOLOGY METHOD 01/14/2025 2:[address] [facility] MCV 90.3 79.0 - 98.0 FL LAB HEMETOLOGY METHOD 01/14/2025 2:[address] [facility] MCH 31.1 27.0 - 32.0 pcg LAB HEMETOLOGY METHOD 01/14/2025 2:[address] [facility] MCHC 34.5 32.0 - 37.0 g/dL LAB HEMETOLOGY METHOD 01/14/2025 2:[address] [facility] RDW 12.6 11.0 - 15.0 % LAB HEMETOLOGY METHOD 01/14/2025 2:[address] [facility] Platelets 309 130 - 400 K/mcL LAB HEMETOLOGY METHOD 01/14/2025 2:[address] [facility] MPV 10.5 7.0 - 11.0 FL LAB HEMETOLOGY METHOD 01/14/2025 2:[address] [facility] NRBC 0.0 <1.0 % LAB HEMETOLOGY METHOD 01/14/2025 2:[address] [facility] NRBC Absolute 0.00 <0.10 K/mcL LAB HEMETOLOGY METHOD 01/14/2025 2:[address] [facility] Neutrophils Relative 51.6 % LAB HEMETOLOGY METHOD [facility] Lymphocytes Relative 39.8 % LAB HEMETOLOGY METHOD 01/14/2025 2:[address] [facility] Monocytes Relative 6.5 % LAB HEMETOLOGY METHOD [facility]/14[facility]2025 [facility] Eosinophils Relative 0.6 % LAB HEMETOLOGY METHOD 01/14/2025 2:[address] [facility] Basophils Relative 1.0 % LAB HEMETOLOGY METHOD 01/14[facility]2025 [facility] Immature Granulocytes Relative 0.5 % LAB HEMETOLOGY METHOD 01/14/2025 2:[address] [facility] Neutrophils Absolute 5.67 1.50 - 7.00 K/mcL LAB HEMETOLOGY METHOD 01/14/2025 2:[address] [facility] Lymphocytes Absolute 4.39 1.00 - 5.00 K/mcL LAB HEMETOLOGY METHOD 01/14/2025 2:[address] [facility] Monocytes Absolute 0.72 0.20 - 1.00 K/mcL LAB HEMETOLOGY METHOD 01/14/2025 2:[address] [facility] Eosinophils Absolute 0.07 0.00 - 0.50 K/mcL LAB HEMETOLOGY METHOD 01/14/2025 2:[address] [facility] Basophils Absolute 0.11 0.00 - 0.20 K/[facility] HEMETOLOGY METHOD 01/14/2025 2:[address] [facility] Immature Granulocytes Absolute 0.06(H) 0.00 - 0.03 K/[facility] HEMETOLOGY METHOD 01/14/2025 2:[address] [facility] Blood Venous blood specimen / Unknown Venipuncture / Unknown 01/14/2025 10:25 AM EDT 01/14/2025 10:25 AM EDT us Nicole Cisneros MD LAB BLOOD ORDERABLES Final Result [facility] [address] [place] [address], [place] [phone] * (ABNORMAL) Lupus anticoagulant with reflex to mixing studies (01/14/2025 10:25 AM EDT) APTT 39 <43 Sec(s) 01/19/2025 1:49 PM EDT [facility] aPTT Mix 1:1 NA Sec(s) 01/19/2025 1:49 PM EDT [facility] Hexagonal Phase Neutralization NA 01/19/2025 1:49 PM EDT [facility] Dilute Zeke Viper Venom 53(H) <44 Sec(s) 01/19/2025 1:49 PM EDT [facility] DRVVT 1:1 Mix 42 <44 Sec(s) 01/19/2025 1:49 PM EDT [facility] DRVVT Confirmation NA 2024 1:49 PM EDT [facility] Interpretation SEE BELOW 01/19/2025 1:49 PM EDT [facility] Comment: Lupus anticoagulant not detected. Test performed at [facility], [facility] [address] Document Preparation , [place] [address] Ekaterina Thompson MD, PhD - Scroll Shear Operator Blood Venous blood specimen / Unknown Venipuncture / Unknown 01/14/2025 10:25 AM EDT 01/14/2025 10:25 AM EDT Nicole Cisneros MD LAB BLOOD ORDERABLES Final Result [facility] [address] [place] [address] * Cardiolipin antibodies, IgG, IgM and IgA (01/14/2025 10:25 AM EDT) [facility] Cardiolipin Antibody Screen Negative Negative LAB CHEMISTRY METHOD 01/20/2025 12:[address] [facility] Blood Venous blood specimen / Unknown Venipuncture / Unknown 01/14/2025 10:25 AM EDT 01/14/2025 10:25 AM EDT Nicole Cisneros MD LAB BLOOD ORDERABLES Final Result Performing Organization Address City/[facility] de Phone Number [facility] [address] [place] [address], [place] [phone] * (ABNORMAL) Comprehensive metabolic panel (01/14/2025 10:25 AM EDT) [facility] Sodium 132(L) 133 - 145 mmol/L LAB CHEMISTRY METHOD 01/14/2025 4:[address] [facility] Potassium 4.5 3.5 - 5.5 mmol/L LAB CHEMISTRY METHOD 01/14/2025 4:[address] [facility] Chloride 102 96 - 110 mmol/L LAB CHEMISTRY METHOD 01/14/2025 4:[address] [facility] CO2 26 21 - 32 mmol/L LAB CHEMISTRY METHOD 01/14/2025 4:[address] [facility] Anion Gap 4 3 - 11 LAB CHEMISTRY METHOD 01/14/2025 4:[address] [facility] Glucose 345(H) 70 - 100 mg/dL LAB CHEMISTRY METHOD 01/14/2025 4:[address] [facility] BUN 13 5 - 25 mg/dL LAB CHEMISTRY METHOD 01/14/2025 4:[address] [facility] Creatinine 1.18 0.70 - 1.30 mg/dL LAB CHEMISTRY METHOD 01/14/2025 4:[address] [facility] eGFR 75 >=60 mL/min/1. 73m2 LAB CHEMISTRY METHOD 01/14/2025 4:[address] [facility] Comment:Calculation based on the Chronic Kidney Disease Epidemiology Collaboration (CKD-EPI) equation refit without adjustment for race. BUN/Creatinine Ratio 11.0 LAB CHEMISTRY METHOD 01/14/2025 4:[address] [facility] Calcium 10.0 8.5 - 10.5 mg/dL LAB CHEMISTRY METHOD 01/14/2025 4:01 [facility] AST (SGOT) 11 10 - 42 unit/L LAB CHEMISTRY METHOD 01/14/2025 4:01 [facility] ALT (SGPT) 30 10 - 60 unit/L LAB CHEMISTRY METHOD 01/14/2025 4:[address] [facility] Alkaline Phosphatase 130(H) 42 - 121 unit/L LAB CHEMISTRY METHOD 01/14/2025 4:[address] [facility] Total Protein 7.7 6.0 - 8.0 g/dL LAB CHEMISTRY METHOD 01/14/2025 4:[address] [facility] Albumin 4.0 3.2 - 5.0 g/dL LAB CHEMISTRY METHOD 01/14/2025 4:[address] [facility] Total Bilirubin 0.5 0.0 - 1.4 mg/dL LAB CHEMISTRY METHOD 01/14/2025 4:[address] [facility] Blood Venous blood specimen / Unknown Venipuncture / Unknown 01/14/2025 10:25 AM EDT 01/14/2025 10:25 AM EDT Nicole Cisneros MD LAB BLOOD ORDERABLES Final Result Performing Organization Address City/[facility]/ZIP Co de Phone Number [facility] [address] [place] [address], [place] [phone] * Microalbumin creatinine urine ratio (01/14/2025 10:23 AM EDT) Creatinine, Urine 99.0 mg/dL LAB CHEMISTRY METHOD 01/14/2025 1:[address] [facility] Microalb, Ur 23.5 0.0 - 29.0 mg/L LAB CHEMISTRY METHOD 01/14/2025 1:[address] [facility] Microalb/Creat Ratio 24 <30 mg/g creat LAB CHEMISTRY METHOD 01/14/2025 1:[address] [facility] Urine Urine specimen obtained by clean catch procedure / Unknown Non-blood Collection / Unknown 01/14/2025 10:23 AM EDT 01/14/2025 10:23 AM EDT Nicoel Cisneros MD LAB URINE ORDERABLES Final Result 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
== END 2025-04-08 12:12 | disposition home or self-care (01) ==
PROVIDERS: PCP Internal Medicine; Visit Provider Nurse Practitioner Family
DX: G43.709 Chronic migraine without aura, not intractable, without status migrainosus (principal); G43.109 Migraine with aura, not intractable, without status migrainosus; H53.149 Visual discomfort, unspecified; I63.511 Cerebral infarction due to unspecified occlusion or stenosis of right middle cerebral artery; I65.22 Occlusion and stenosis of left carotid artery; I65.21 Occlusion and stenosis of right carotid artery; G47.33 Obstructive sleep apnea (adult) (pediatric)
CPT/HCPCS: 99214

== ENCOUNTER → 2025-04-08 11:27 | Outpatient (BNVA) | payer OTHER, SELFPAY | PROVIDERS: PCP Internal Medicine; Visit Provider Nurse Practitioner Family | DX: G43.E09 Chronic migraine with aura, not intractable, without status migrainosus (principal); H53.143 Visual discomfort, bilateral; I63.511 Cerebral infarction due to unspecified occlusion or stenosis of right middle cerebral artery; I65.21 Occlusion and stenosis of right carotid artery; I65.22 Occlusion and stenosis of left carotid artery; G47.33 Obstructive sleep apnea (adult) (pediatric) | CPT/HCPCS: 99212 ==